=== PATIENT | female | born 1990 | race Caucasian/White ===

== ENCOUNTER → 2017-09-06 | Outpatient (CLI) | payer OTHER | END | disposition home or self-care (01) | LOC: C.PAPS 16:38 | PROVIDERS: ATTEND Obstetrics & Gynecology | DX: Z12.4 Encounter for screening for malignant neoplasm of cervix (principal) ==

== ENCOUNTER 2021-04-14 19:12 | Inpatient (IN) ==
[2021-04-14] MEDS: LACTATED RINGER'S 1,000 ML IV PRN ×2 (20:00→23:42)
[2021-04-14] MEDS ORDERED: OXYTOCIN 30 UNITS/500 ML BAG IV PRN (20:08)
[2021-04-14 20:58] LABS: Hematocrit (blood only) 30.6 % (37-47); Hemoglobin 10.4 g/dL (12.0-16.0); Mean Corpuscular Volume 91.1 fL (80-100); Mean Platelet Volume 11.4 fL (7.4-10.4); Platelet Count 187 K/uL (130-400); RDW Coefficient of Variation 12.8 % (11.5-14.5); RDW Standard Deviation 41.9 fL (36.4-46.3); Red Blood Count 3.36 M/uL (4.2-5.4)
--- NOTE | 2021-04-14 22:19 | History & Physical Report ---
Date of Service April 14, 2021 Assessment & Plan (1) Post-dates : Plan: IUP at 40 weeks presents for IOL cervical balloon was successfully placed but because of intolerance, it was removed with heart tracing returning to baseline. She is now odin regularly with mild contractions . will monitor for now- may need low dose pitocin for further cervical ripening if current contraction pattern slows and heart tracing remains reassuring. Admission and Anticipated Discharge Date Admission Date: April 14, 2021 History of Present Illness Primary Care Provider: Niall Middleton MD Patient is a 30 yo white female EDC 04/14/21 who presents for IOL with u nfavorable cervix. No regular contractions yet. Baby active. GBS(-) Allergies Allergy/AdvReac Type Severity Reaction Status Date / Time No Known Allergies Allergy Verified 04/14/21 19:27 Home Medications Medication Instructions Recorded Confirmed Type prenat.vits,carter,bsh-mjny-liyht 1 tab PO DAILY 08/27/20 04/14/21 History Patient History Medical History BCP ( control pills) initiation Common wart Junctional nevus Vesicoureteral reflux Surgical History Hx of oral surgery Family History Denies family history of Colorectal cancer Social History Smoking Status: Never smoker Hx Alcohol Use: No Hx Substance Use: No Preferred Language: Greek Communication Ability: Effective Medical Lab Technologist Required: No Beliefs That Will Affect Care: None marital status: marital status details: Alexandra (31) [phone] Current Living Situation: Spouse Current Living Situation Comment: lives with spouse, 1 dog, 1 cat, spouse to change litter. 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 Other Information That Helps Us Care for You: No Feels Safe at Home: Yes Safety Concerns: Feels Safe At This Time Sexual Activity: has been sexually active within the last 12 months Assistive Devices: None Review of Systems All systems reviewed & are unremarkable except as noted in HPI & below Physical Exam Constitutional: WD/WN, vitals as above Psychiatric: A+Ox3, euthymic affect Genitourinary: OB Exam Abdomen: + vertex, + estimated weight (6-7 pounds) and + irregular contractions Manual OB Exam: + cervical dilation (closed), + cervical effacement 50% and + station high speculum placed vaginally and cervix visualized. Initial attempts at placing the catheter intracervically were unsuccessful. A stylet was placed in the catheter taking care that the tip was securely inside the catheter. It was able to be placed into the cervix and 40cc water were instilled into the balloon. The catheter was then secured to her left thigh under gentle traction. shortly after placement of the balloon and securing it, heart tracing decreased to 80's bpm baseline. maternal position was changed multiple times and the heart rate remained in 80-90 bpm range. O2 was also begun. Ultimately the cervical balloon was emptied and the catheter removed from the cervix. At this point heart tones returned to baseline and returned to Category 1 tracing. Results & Data ([facility]) Vital Signs (Past 12 Hours) Vital Signs Temp Pulse Resp BP 04/14/21 19:24 98.6 F 77 18 123/58 L Coding Level of Care Code 94310 Office/Outpt Visit, Est Diagnoses Post-dates O48.0 CPT Codes Misx Procedure Codes - 41531 Placement of cervical dilator: 43190 Placement of cervical dilator ([id number])
[2021-04-15] MEDS ORDERED: OXYTOCIN 30 UNITS/500 ML BAG IV PRN (00:40)
[2021-04-15] MEDS: LACTATED RINGER'S 1,000 ML IV PRN (07:23)
--- NOTE | 2021-04-15 09:23 | History & Physical Report ---
Date of Service April 15, 2021 Assessment & Plan (1) intolerance to labor, delivered, current hospitalization: Plan: Brain is just postdates first baby and was scheduled for cervical Rios last night however after insertion of the Rios she had a prolonged D cells the cervical Rios had to be removed at that time. The heart rate did recovery and Pitocin was started over the night in the morning I discussed with the patient different options and at this stage her contractions are pretty minimal on the Pitocin we initially started to include to increase the Pitocin I assessed her cervix and it was long thick and closed and posterior the head posi tion was extremely high as well her pelvis is somewhat narrow I discussed options with the patient I think there are 2 options in this case one would would be active induction and Pitocin including retrying the cervical Rios however during her exam she had a prolonged D cells and then another D cell after the exam. At this stage I also discussed that I have some worries about the size of the baby relative to her pelvis and certainly an induction is not unwarranted however with the recurrence of her D cells at fairly minimal actions it is somewhat worrisome I offered the patient also to just proceed directly to section I discussed that she does not truly have intolerance to labor at this stage because we have not gotten her into even active labor. I reviewed the risks of a section in depth but I also reviewed the risks of inducing including the potential for a prolonged D-cell that would require an emergent I discussed and the Endo goal is always to promote vaginal delivery but in this case both the size of the baby relative to the size of the patient and her intolerance twice for laying on her back once was with the Rios and once was with the cervical exam intolerance with respect to the fetus. I given the patient and her time to discuss and ultimately want them to make the choice and then they have made the choice to proceed with and I agree this is a reasonable course we again reviewed the option of induction at this stage they declined section. The patient was counseled to the nature of the procedure including alternatives such as labor. Risks were discussed including bleeding infection injury to bowel bladder ureter vessels and even baby. Deep Vein thrombosis, pulmonary embolus discussed. Breakdown of incision reviewed. Deep vein thrombosis pulmonary embolus hernia and failure of the incision to heal were discussed Patient verbalized understanding of this and was given ample time to ask questi ons Admission and Anticipated Discharge Date Admission Date: April 14, 2021 History of Present Illness Primary Care Provider: Niall Middleton MD Allergies Allergy/AdvReac Type Severity Reaction Status Date / Time No Known Allergies Allergy Verified 04/14/21 19:27 Home Medications Medication Instructions Recorded Confirmed Type prenat.vits,carter,sad-glhj-mxmul 1 tab PO DAILY 08/27/20 04/14/21 History Patient History Medical History (Updated 04/15/21 @ 09:20 by Chelsea Mejia MD, FACOG) BCP ( control pills) initiation Common wart Junctional nevus Vesicoureteral reflux Surgical History Hx of oral surgery Family History Denies family history of Colorectal cancer Social History Smoking Status: Never smoker Hx Alcohol Use: No Hx Substance Use: No Preferred Language: Montserratian Communication Ability: Effective Rn Integrated Required: No Beliefs That Will Affect Care: None marital status: marital status details: Alexandra (31) [phone] Current Living Situation: Spouse Current Living Situation Comment: lives with spouse, 1 dog, 1 cat, spouse to change litter. 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 Other Information That Helps Us Care for You: No Feels Safe at Home: Yes Safety Concerns: Feels Safe At This Time Sexual Activity: has been sexually active within the last 12 months Assistive Devices: None Results & Data ([facility]) Vital Signs (Past 12 Hours) Vital Signs Temp Pulse Resp BP 04/15/21 08:15 73 120/61 04/15/21 07:14 98.2 F 78 20 111/70 04/15/21 06:16 81 16 101/68 04/15/21 05:14 98.6 F 52 L 16 100/53 L 04/15/21 04:14 54 L 16 99/54 L 04/15/21 03:14 68 95/53 L 04/15/21 02:14 57 L 16 104/59 L 04/15/21 01:14 98.1 F 76 16 103/48 L 04/14/21 22:21 98.6 F 70 18 112/55 L Coding Level of Care Code None Diagnoses intolerance to labor, delivered, current hospitalization O77.9
[2021-04-15] MEDS ORDERED: CITRIC ACID/SODIUM CITRATE 15 ML UDC PO SCH (09:45)
[2021-04-15] MEDS ORDERED: ceFAZolin 2000MG 2,000 MG/15 ML SYR IV SCH (09:45)
[2021-04-15] MEDS ORDERED: diphenhydrAMINE 50 MG/ML VIAL IV PRN (09:52)
[2021-04-15] MEDS ORDERED: MoRPHine SULFATE PF 1 MG/ML 10 ML AMP/VIAL INT SPINAL ONE (09:52)
[2021-04-15] MEDS ORDERED: LACTATED RINGER'S 500 ML IV PRN (09:52)
[2021-04-15] MEDS ORDERED: KETOROLAC 30 MG/ML VIAL IV PRN (09:52)
[2021-04-15] MEDS ORDERED: NALBUPHINE HCL INJ 10 MG/ML AMP IV PRN (09:52)
[2021-04-15] MEDS ORDERED: HYDROmorphone INJ 0.5 MG/0.5 ML SYR IV PRN (09:52)
[2021-04-15] MEDS ORDERED: ONDANSETRON INJ 2 MG/ML 2 ML VIAL IV PRN (09:52)
[2021-04-15] MEDS ORDERED: ePHEDrine sulfate 50 MG/ML AMP IV PRN (09:52)
[2021-04-15] MEDS ORDERED: NALOXONE HCL 0.4 MG/1 ML VIAL/CARP IV PRN (09:52)
[2021-04-15] MEDS ORDERED: NALOXONE HCL 1 MG in SODIUM CHLORIDE 0.9% 1000ML 1,000 ML IV PRN (09:52)
[2021-04-15] MEDS ORDERED: NALOXONE HCL 0.08 MG in SYRINGE 1.8 ML IV PRN (09:52)
--- NOTE | 2021-04-15 09:52 | Anesthesiology Consultation ---
Date of Service April 15, 2021 Assessment & Plan Chart Review Chart Review: Acceptable Risk for Surgery and Patient NOT seen in Pre Admission Testing Consults Requested none ASA ASA2 Proposed Anesthesia Anesthesia Type: MAC Spinal Risk / Benefits Reviewed With: PT / POA / Parent / Guardian, Accepts Plan and Informed Consent Obtained History Surgery Operation Date: 04/15/21 09:45 Proposed Procedures p Section in LD - J. Fred Mejia MD, FACOG Height/Weight Height: 5 ft 1 in Weight: 70.76 kg Allergies Allergy/AdvReac Type Severity Reaction Status Date / Time No Known Allergies Allergy Verified 04/14/21 19:27 Medications Home Medications Medication Instructions Recorded Confirmed Last Taken prenat.vits,carter,fvz-wynj-avebe 1 tab PO DAILY 08/27/20 04/14/21 04/14/21 08:00 Active Medications Generic Name Dose Route Start Last Admin Trade Name Freq PRN Reason Stop Dose Admin Lactated Ringer's 1,000 mls @ 125 mls/hr 04/14/21 20:08 04/15/21 09:00 Lr IV 04/16/21 20:07 999 mls/hr .Q8H PRN Infusion L&D Protocol Protocol Oxytocin 30 units in 500 mls @ 0 mls/hr 04/15/21 00:40 04/15/21 09:00 Pitocin IV 04/17/21 00:39 0 units/hr .Q0M PRN 0 mls/hr Labor Induction/Augmentation Titration Protocol 0 UNITS/HR NPO Date Last Intake of Fluids: 04/15/21 Time Last Intake of Fluids: 07:30 Date Last Intake of Solids: 04/14/21 Time Last Intake of Solids: 17:30 Past Medical History Medical History BCP ( control pills) initiation Common wart Junctional nevus Vesicoureteral reflux Exercise / Class Metabolic Activity II 4-5 Yardwork/Stairs/Walk up hill Past Family History Family History Denies family history of Colorectal cancer Past Surgical History Surgical History Hx of oral surgery Past Anesthesia History No Hx of Anesthesia Complications and No Family Hx of Anesthesia Complications History of PONV No Hx of PONV and No Hx of Motion Sickness Social History Smoking Status: Never smoker Hx Alcohol Use: No Hx Substance Use: No substance use type: does not use Review of Systems no chest pain or sob Physical Exam Vital Signs Last Vital Signs Temp 36.8 C 04/15/21 07:14 Pulse 74 04/15/21 09:49 Resp 20 04/15/21 07:14 BP 120/61 04/15/21 08:15 Pulse Ox 100 04/15/21 09:49 ENMT Mouth: no TMJ abnormality Thyromental Distance: > or= 3.5 Finger Breadths Mallampati Class: II Neck normal visual inspection Respiratory normal respiratory effort Auscultation: lungs clear to auscultation bilaterally Cardiovascular Rate/Rhythm: regular rate and regular rhythm Musculoskeletal Spine: normal cervical ROM Neurologic moves all extremities Psychiatric Orientation: alert and oriented x 3 Testing Laboratory Results 04/14/21 20:35
[2021-04-15] MEDS ORDERED: fentaNYL citrate 100 MCG/2 ML VIAL ONE (09:59)
[2021-04-15] MEDS ORDERED: MoRPHine SULFATE PF 1 MG/ML 10 ML AMP/VIAL ONE (09:59)
[2021-04-15] MEDS ORDERED: NO NARCOTICS OR SEDATIVES SCH (10:00)
[2021-04-15] MEDS ORDERED: SODIUM CHLORIDE 0.9% 1000ML 1,000 ML IV SCH (10:00)
[2021-04-15] MEDS ORDERED: DC INTRASPINAL MORPHINE SCH (10:00)
[2021-04-15] MEDS ORDERED: PHENYLEPHRINE 100MCG/ML 5ML SYR ONE (10:23)
[2021-04-15] MEDS ORDERED: ePHEDrine sulfate 50 MG/ML SYR ONE (10:23)
[2021-04-15] MEDS ORDERED: OXYTOCIN 10 UNITS/ML VIAL ONE ×2 (10:23→10:37)
[2021-04-15] MEDS ORDERED: ONDANSETRON INJ 2 MG/ML 2 ML VIAL ONE (10:26)
--- NOTE | 2021-04-15 11:10 | Operative Report ---
PG Post Operative Report Pre & Post Diagnosis Operation Date: 04/15/21 09:45 Pre-Op Diagnosis: Term , intolerance to labor Post-Op Diagnosis: Term , intolerance to labor. Primary section for living male child at 1035 I identified the patient and participated in the time-out.: Yes Procedure Operation Date: 04/15/21 09:45 <No data on this case meets the specified criteria> Surgeon Chelsea Mejia MD, FACOG Housekeeping Department Worker Dr. Sheikh Estimated Blood Loss 600 Findings Consistent with Post-Op Diagnosis Specimens Cord blood cord gases Description of Procedure Regional anesthetic was given by anesthesia patient had a Rios catheter inserted by nursing patient was prepped and draped in supine position with a leftward tilt preoperative antibiotics were given timeout performed Pickups with teeth were used to test the skin site and it was found adequate for incision scalpel used to make a Pfannenstiel incision cutting down through subcutaneous fat through the fascia fascia was then dissected laterally with the curved Concepcion's fascia was released superiorly and inferiorly from the rectus musc les with the curved Concepcion scissors, rectus muscle split peritoneal cavity entered in a superior location. Opening enlarged to allow exposure bladder retractor placed Metzenbaums used to dissect away the bladder flap low segment transverse incision made on the uterus with scalpel entry was done bluntly with the wood turning lathe operator's finger hysterotomy incision extended with the wood turning lathe operator's finger in the usual fashion. The baby's head was essentially floating in the uterus very high up out of the pelvis I ruptured membranes with a hemostat fluid was clear did not feel I could deliver the baby's head easily without a vacuum so this was attached initially pulled twice with pop offs of the vacuum and at this stage I extended the uterine incision slightly with bandage scissors. There was no significant extension at this stage is then able to deliver baby's head with pulling with the vacuum pulling firmly but not excessively and with pressure from the assistant producer helping baby's head was delivered was a loose nuchal cord passed over the head baby was then delivered by gentle traction no excessive force baby initially was not vigorous but became vigorous after initial resuscitation by the pediatric team male cord clamped and cut cord gases obtained cord blood obtained placenta removed manually within ensured all placenta removed with a moist lap sponge uterus exteriorized IV Pitocin had been started by anesthesia and uterine tone improved. The uterus was closed in 2 layers first layer and 0 Monocryl running locked second layer 0 Monocryl nonlocked after generous irrigation and suction of the cul-de-sac and bladder flap regions hemostasis was excellent uterus was placed back in the peritoneal cavity and hemostasis was excellent rectus muscles were inspected and found to be dry fascia closed with 0 Vicryl subcutaneous fat closed with 3-0 Vicryl prior to this subcutaneous fat was irrigated skin closed with 4-0 subcuticular Monocryl incision Steri-Stripped urine was clear at the end of the procedure. Uterus and both adnexa were normal I attest to the content of the Intraoperative Record and any orders documented therein. Any exceptions are noted below. OB Procedure Charges 19553
[2021-04-15 11:11] LABS: CO2 Cord Arterial Blood 96 mmHg (39.1-73.5); HCO3 Cord Arterial Blood 25 mmol/L (19.7-28.5); pH Cord Arterial Blood 7.03 (7.1-7.38)
[2021-04-15 11:16] LABS: Base Excess Cord Venous Blood -8.1 mEq/L (-7.7-1.9); Cord Venous Blood HCO3 25 mmol/L (18.4-26.8); Cord Venous Blood PCO2 90 mmHg (30.4-57.2); Cord Venous Blood pH 7.06 (7.20-7.44)
[2021-04-15 11:26] LABS: Cord Venous Blood PO2 < 10 mmHg (14.1-43.3); O2 Saturation Cord Venous Bld < 60.0 % (<68)
[2021-04-15 11:27] LABS: Oxygen Sat Cord Arterial Blood < 60.0 % (<60); PO2 Cord Arterial Blood < 10 mmHg (4.1-31.7)
[2021-04-15] MEDS ORDERED: BENZOCAINE 20% AER SPR 82.5 GM CAN EXT PRN (11:54)
[2021-04-15] MEDS ORDERED: DIPHTHERIA/TETANUS/PERTUSSIS 0.5 ML SYR/VIAL IM ONE (11:54)
[2021-04-15] MEDS ORDERED: SENNA 8.6 MG TAB PO PRN (11:54)
[2021-04-15] MEDS ORDERED: HYDROCORTISONE ACETATE 25 MG SUPP PR PRN (11:54)
[2021-04-15] MEDS ORDERED: MAGNESIUM HYDROXIDE SUSP 30 ML UDC PO PRN (11:54)
[2021-04-15] MEDS ORDERED: SUPERCREAM 0.870% 15 GM JAR EXT PRN (11:54)
--- NOTE | 2021-04-15 12:08 | Anesthesiology Progress Note ---
Date of Service April 15, 2021 Anesthesia Post Procedure Vital Signs Vital Signs: Temp Pulse Resp BP Pulse Ox 04/15/21 12:04 66 111/56 L 99 04/15/21 11:59 65 99 04/15/21 11:54 85 109/55 L 99 04/15/21 11:51 75 103/53 L 04/15/21 11:49 74 99 04/15/21 11:48 166/134 H 04/15/21 11:44 73 98 04/15/21 11:39 72 99 04/15/21 11:35 70 106/55 L 04/15/21 11:34 71 98 04/15/21 11:29 72 97 04/15/21 11:24 73 99/54 L 97 04/15/21 11:19 73 99 04/15/21 11:14 70 118/56 L 98 04/15/21 09:49 74 100 04/15/21 08:15 73 120/61 04/15/21 07:14 36.8 C 78 20 111/70 04/15/21 06:16 81 16 101/68 04/15/21 05:14 37.0 C 52 L 16 100/53 L 04/15/21 04:14 54 L 16 99/54 L 04/15/21 03:14 68 95/53 L 04/15/21 02:14 57 L 16 104/59 L 04/15/21 01:14 36.7 C 76 16 103/48 L 04/14/21 22:21 37.0 C 70 18 112/55 L 04/14/21 19:24 37.0 C 77 18 123/58 L Transfer of Care Handoff Completed per policy Notes Mental Status: alert / awake / arousable Patient Amnestic to Procedure: Yes Nausea / Vomiting: adequately controlled Pain: adequately controlled Airway Patency, RR, SpO2: stable & adequate BP & HR: stable & adequate Hydration State: stable & adequate Neuraxial Anesthesia: was administered and sensory block is resolving Anesthetic Complications: no major complications apparent and Pt Satisfied with anesthetic care
[2021-04-15] MEDS: OXYTOCIN 20 UNITS in LACTATED RINGER'S 1,000 ML IV SCH ×2 (13:49→21:41)
[2021-04-15] MEDS: SIMETHICONE 80 MG CHEW PO SCH ×3 (18:08→20:11)
[2021-04-15] MEDS: DOCUSATE SODIUM 100 MG CAP PO SCH (20:57)
[2021-04-16] MEDS ORDERED: PROMETHAZINE HCL 25 MG in SODIUM CHLORIDE 0.9% 50 ML IV PRN (03:53)
[2021-04-16] MEDS ORDERED: KETOROLAC 30 MG/ML VIAL IV PRN (03:53)
[2021-04-16] MEDS ORDERED: diphenhydrAMINE Capsule 25 MG CAP PO PRN (03:53)
[2021-04-16] MEDS ORDERED: ONDANSETRON INJ 2 MG/ML 2 ML VIAL IV PRN (03:53)
[2021-04-16] MEDS ORDERED: diphenhydrAMINE 50 MG/ML VIAL IV PRN (03:53)
--- NOTE | 2021-04-16 06:56 | Obstetrical Progress Note ---
Date of Service <Maria Guadalupe Hilario MD - Last Filed: 04/16/21 07:24> April 16, 2021 Assessment & Plan <Maria Guadalupe Hilario MD - Last Filed: 04/16/21 07:24> (1) delivery delivered: 30 yo now POD1 from LTCS for failure to progress at 40wk1d -Continue routine care -Vitals reviewed- HDS, afebrile -Blood type A+, GBS-, Rubella immune -Encourage ambulation, regular diet -Pain control with ibuprofen, oxycodone PRN -F/u in 6 weeks with OB <Chelsea Mejia MD, FACOG - Last Filed: 04/16/21 07:48> (1) delivery delivered: Subjective <Maria Guadalupe Hilario MD - Last Filed: 04/16/21 07:24> Ambulation: ambulating normally Voiding: no voiding problems (Rios taken out but has not urinated yet) Passing Gas:: Yes Diet Tolerance:: regular diet Lochia:: Small Feeding Type:: bottle feeding Current Pain Level(1-10): 0 Pt doing well overall, no acute complaints or distress. Mild soreness well controlled with medication. Has yet to pass BM Review of Systems Denies fever/chills. Denies dyspnea, cough. Denies chest pain. Denies breast pain or discharge. Denies dysuria. Denies headache. Denies back pain. Physical Exam <Maria Guadalupe Hilario MD - Last Filed: 04/16/21 07:24> General: Alert, oriented, no acute distress Cardiac: Regular rate and rhythm, normal S1, S2. No murmurs noted. Respiratory: Clear to auscultation b/l with good air flow entry, symmetric chest rise and fall. No wheezes or crackles. No increased work of breathing or accessory muscle use. Abdomen: Soft, nontender, nondistended. Fundus firm and palpable at 1 cm below umbilicus. Surgical incision clean, dry and intact without erythema, warmth or drainage. No guarding or rebound. Skin: No rashes or lesions Extremities: Warm, dry and well-perfused with capillary refill <2s b/l. No lower extremity edema, erythema or swelling. Negative Dasia's sign b/l. Results & Data ([facility]) <Maria Guadalupe Hilario MD - Last Filed: 04/16/21 07:24> Vital Signs (Past 12 Hours) Vital Signs Temp Pulse Resp BP Pulse Ox 04/16/21 04:45 36.9 C 68 18 108/62 93 04/16/21 04:00 18 95 04/16/21 03:00 18 92 04/16/21 02:00 18 93 04/16/21 01:00 18 94 04/16/21 00:10 36.7 C 66 18 104/60 94 04/16/21 00:00 18 93 04/15/21 23:00 18 94 04/15/21 22:00 18 86 L 04/15/21 21:00 16 97 04/15/21 20:30 37.2 C 68 18 106/52 L 96 04/15/21 19:59 16 97 04/15/21 19:00 16 97 <Chelsea Mejia MD, FACOG - Last Filed: 04/16/21 07:48> Co-Signing Physician Notes Resident Physician Supervision Note: I was present with Dr. Sheikh during the history and exam. I discussed the case with the resident and agree with the findings and plan as documented in the note. Any exceptions or clarifications are listed here: [None] Documented By: Chelsea Mejia MD, FACOG Resident Activity Tracking <Maria Guadalupe Hilario MD - Last Filed: 04/16/21 07:24> Resident Involvement: Resident Care Provided Care Provided: OB Delivery
[2021-04-16 07:30] LABS: Basophils # (auto) 0.01 K/uL (0-0.2); Basophils % (auto) 0.1 %; Eosinophils # (auto) 0.01 K/uL (0-0.5); Eosinophils % (auto) 0.1 %; Hematocrit (blood only) 24.6 % (37-47); Hemoglobin 8.3 g/dL (12.0-16.0); Immature Granulocytes # (auto) 0.01 K/uL (0.00-0.02); Immature Granulocytes % (auto) 0.1 %; Lymphocytes # (auto) 0.98 K/uL (1.2-3.4); Lymphocytes % (auto) 11.9 %; Mean Corpuscular Hemoglobin 31.2 pg (25-34); Mean Corpuscular Hgb Conc 33.7 g/dL (32-36); Mean Corpuscular Volume 92.5 fL (80-100); Mean Platelet Volume 10.4 fL (7.4-10.4); Monocytes # (auto) 0.65 K/uL (0.11-0.59); Monocytes % (auto) 7.9 %; Neutrophils # (auto) 6.61 K/uL (1.4-6.5); Neutrophils % (auto) 79.9 %; Platelet Count 137 K/uL (130-400); RDW Coefficient of Variation 13.1 % (11.5-14.5); RDW Standard Deviation 43.9 fL (36.4-46.3); Red Blood Count 2.66 M/uL (4.2-5.4); White Blood Count 8.27 K/uL (4.8-10.8)
[2021-04-16] MEDS: PRENATAL VITAMIN 1 TAB PO SCH (08:22)
[2021-04-16] MEDS: DOCUSATE SODIUM 100 MG CAP PO SCH ×2 (08:22→20:19)
[2021-04-16] MEDS: FERROUS SULFATE 325 MG TAB PO SCH (08:22)
[2021-04-16] MEDS: SIMETHICONE 80 MG CHEW PO SCH ×4 (08:22→23:43)
[2021-04-16] MEDS ORDERED: bisacodyL 5 MG TABEC PO SCH (20:00)
[2021-04-16] MEDS: oxyCODONE/ACETAMINOPHEN 5mg/325mg TAB PO PRN (23:58)
[2021-04-17] MEDS: DOCUSATE SODIUM 100 MG CAP PO SCH ×2 (07:39→20:25)
[2021-04-17] MEDS: FERROUS SULFATE 325 MG TAB PO SCH (07:39)
[2021-04-17] MEDS: SIMETHICONE 80 MG CHEW PO SCH ×4 (07:39→20:25)
--- NOTE | 2021-04-17 07:50 | Obstetrical Progress Note ---
Date of Service April 17, 2021 Assessment & Plan (1) delivery delivered: 30 yo now POD2 from [facility] Blood type A+, GBS-, Rubella immune Prefers to remain inpatient today into tomorrow AM for additional support. Recovery going very well, routine PP care. Subjective Ambulation: ambulating normally Voiding: no voiding problems Passing Gas:: Yes Diet Tolerance:: regular diet Lochia:: Small Feeding Type:: breast feeding Physical Exam Constitutional WD/WN, vitals as above Eyes PERRL, conjunctivae normal, anicteric sclerae Neck normal visual inspection Respiratory normal respiratory effort and able to speak in complete sentences; no respiratory distress and no labored breathing Cardiovascular Rate/Rhythm: regular rate and regular rhythm Extremities: no edema Chest (Breasts) Chest: normal inspection of chest Gastrointestinal (Abdomen) Inspection/Auscultation: abdomen normal to inspection Soft, postgravid. Incision c/d/i with a few steri-strips. Psychiatric A+Ox3, euthymic affect Genitourinary OB Exam Abdomen: + fundal height Fundus: + firm and + relation to umbilicus (fundus just below umbilicus); not tender Results & Data ([facility]) Vital Signs (Past 12 Hours) Vital Signs Temp Pulse Resp BP Pulse Ox 04/16/21 23:50 98.1 F 87 16 107/61 98 04/16/21 20:00 98.1 F 68 20 120/68 96
[2021-04-17 08:26] LABS: Hemoglobin 7.7 g/dL (12.0-16.0)
[2021-04-17] MEDS: oxyCODONE/ACETAMINOPHEN 5mg/325mg TAB PO PRN ×2 (08:51→23:56)
[2021-04-17] MEDS: IBUPROFEN 600 MG TAB PO PRN ×4 (08:52→23:56)
[2021-04-17] MEDS ORDERED: bisacodyL 10 MG SUPP PR PRN (11:07)
--- NOTE | 2021-04-17 21:38 | Anesthesiology Progress Note ---
Date of Service April 17, 2021 Anesthesia Post Procedure Vital Signs Vital Signs: Temp Pulse Resp BP Pulse Ox 04/17/21 20:00 36.7 C 80 16 121/81 98 04/17/21 15:45 36.7 C 72 16 122/77 97 04/17/21 07:35 36.7 C 78 16 102/61 98 04/16/21 23:50 36.7 C 87 16 107/61 98 Pain Intensity Lower Abdomen: Pain Intensity: 2 Transfer of Care Handoff Completed per policy Notes Mental Status: alert / awake / arousable Patient Amnestic to Procedure: Yes Nausea / Vomiting: adequately controlled Pain: adequately controlled Airway Patency, RR, SpO2: stable & adequate BP & HR: stable & adequate Hydration State: stable & adequate Neuraxial Anesthesia: was administered and sensory block resolved Anesthetic Complications: no major complications apparent and Pt Satisfied with anesthetic care
--- NOTE | 2021-04-18 05:59 | Hospitalist Progress Note ---
Date of Service April 18, 2021 Assessment & Plan Admission and Anticipated Discharge Date Admission Date: April 14, 2021 Results & Data Results & Data ([facility]) Vital Signs (Past 12 Hours) Vital Signs Temp Pulse Resp BP Pulse Ox 04/18/21 00:00 36.7 C 73 16 127/75 99 04/17/21 20:00 36.7 C 80 16 121/81 98
--- NOTE | 2021-04-18 06:35 | Obstetrical Progress Note ---
Date of Service April 18, 2021 Assessment & Plan (1) delivery delivered: Plan: 30 yo now POD1 from LTCS for failure to progress at 40wk1d -Continue routine care -Vitals reviewed- HDS, afebrile -Blood type A+, GBS-, Rubella immune -Encourage ambulation, regular diet -Pain control with ibuprofen, oxycodone PRN -F/u in 6 weeks with OB Admission and Anticipated Discharge Date Admission Date: April 14, 2021 Supervising Physician Co-Signing Physician Notes Resident Physician Supervision Note: I interviewed and examined the patient. Discussed with Dr. Garcia and agree with findings and plan as documented in the note. Any exceptions or clarifications are listed here: [ ] Documented By: Rivka Schmitz MD, FACOG Subjective Ambulation: ambulating normally Voiding: no voiding problems Passing Gas: Yes BM: yes Diet Tolerance:: regular diet Lochia:: Small Feeding Type:: bottle feeding Current Pain Level(1-10): 2 Pt doing well overall, no acute complaints or distress. Review of Systems Review of Systems: Denies fevers/chills. Denies dyspnea, cough. Denies chest pain. Denies breast pain or discharge. Denies dysuria. Mild intermittent headaches. Denies back pain. Physical Exam Physical Exam: General: Alert, oriented, no acute distress Cardiac: Regular rate and rhythm, normal S1, S2. No murmurs appreciated. Respiratory: Clear to auscultation b/l with good air flow entry, symmetric chest rise and fall. No wheezes or crackles. No increased work of breathing or accessory muscle use Abdomen: Soft, nontender, nondistended. Fundus firm and palpable at 2 cm below umbilicus. No guarding or rebound. Skin: No rashes or lesions, incision site healing well with no signs of infection Extremities: Warm, dry, well-perfused with capillary refill <2s b/l. No lower extremity edema, erythema or swelling. Negative Dasia's sign b/l. Results & Data ([facility]) Vital Signs (Past 12 Hours) Vital Signs Temp Pulse Resp BP Pulse Ox 04/18/21 00:00 36.7 C 73 16 127/75 99 04/17/21 20:00 36.7 C 80 16 121/81 98 Resident Activity Tracking Resident Involvement: Resident Care Provided Care Provided: OB Delivery
[2021-04-18] MEDS: DOCUSATE SODIUM 100 MG CAP PO SCH (10:27)
[2021-04-18] MEDS: SIMETHICONE 80 MG CHEW PO SCH (10:27)
[2021-04-18] MEDS: FERROUS SULFATE 325 MG TAB PO SCH (10:27)
[2021-04-18] MEDS: PRENATAL VITAMIN 1 TAB PO SCH (10:30)
--- NOTE | 2021-04-19 13:41 | Discharge Summary ---
Date of Service April 19, 2021 Admission HPI Per Admitting Provider Patient is a 30 yo white female EDC 04/14/21 who presents for IOL with unfavorable cervix. No regular contractions yet. Baby active. GBS(-) Admission Exam (Per Admitting) Cardiovascular RRR, no murmur, no edema Gastrointestinal (Abdomen) normal bowel sounds, soft, nontender, no hepatosplenomegaly Discharge Data Consultations 04/14/21 20:09 Consult Anesthesiology Stat Procedures Performed Operation Date: 04/15/21 09:45 Actual Procedures p Section in LD for living male child at 1035(Bilateral) - Chelsea Mejia MD, [facility] Hospital Course (1) delivery delivered: 30 yo now POD3 from LTCS for failure to progress at 40wk1d -Continue routine care -Vitals reviewed- HDS, afebrile -Blood type A+, GBS-, Rubella immune -Encourage ambulation, regular diet -Pain control with ibuprofen, oxycodone PRN -F/u in 6 weeks with OB Coding Level of Care Code None Diagnoses delivery delivered O82
== END 2021-04-18 11:30 | disposition home or self-care (01) | DRG 788 ==
LOC: OPB 19:12 → 4S1 19:14 → 4S2 04-15 14:04

== ENCOUNTER 2024-08-29 05:29 | Inpatient (IN) ==
--- NOTE | 2024-08-20 13:19 | Anesthesiology Consultation ---
Date of Service August 20, 2024 Assessment & Plan (1) Encounter for pre-operative examination: Chart Review Chart Review: freelance data entry initiated -Infectious Disease screening: Per PAT nursing assessment on 08/20/24. No known infectious disease contacts in past 10 days or current infectious disease symptoms. No recent travel outside the country. 04/15/24= Done under SAB at L3-4 with 1 attempt (done secondary to intolerance to labor) History Surgery Operation Date: 08/29/24 07:30 Proposed Procedures p Section in LD - Pallavi Maki MD, FACOG Height/Weight Height: 5 ft 1 in Weight: 75.296 kg Allergies Allergy/AdvReac Type Severity Reaction Status Date / Time No Known Allergies Allergy Verified 08/20/24 12:48 Medications Home Medications Medication Instructions Recorded Confirmed Last Taken prenat.vits,carter,[id number] 1 tab PO DAILY 08/16/22 08/20/24 Unknown ferrous sulfate 47.5 mg PO DAILY 08/20/24 08/20/24 Unknown Past Medical History Medical History History of miscarriage Junctional nevus Past Family History Family History Grandfather (Paternal) Dyslipidemia Heart disease w/ stents Grandfather No problems noted. Father Dyslipidemia Heart disease w/ stents Other No family history of adverse response to anesthesia Denies family history of Ovarian cancer Prostate cancer Myocardial infarction Breast cancer Colorectal cancer Past Surgical History Surgical History History of kidney surgery as a 2 year old, cleared by urology as child. no issues. (ureter reflux) Hx of section x 1 [place] teeth removed Social History Smoking Status: Never smoker Do You Dip or Chew Tobacco: No Hx Alcohol Use: No Hx Substance Use: No substance use type: does not use Lab Results Anesthesia Preop Results Results Anesthesia Widget: Hgb 12.4 g/dl (12.0-16.0) 08/05/24 Hct 36.8 % (37.0-47.0) L 08/05/24
--- NOTE | 2024-08-28 08:51 | History & Physical Report ---
Date of Service August 28, 2024 Assessment & Plan (1) 39 weeks gestation of : (2) Previous delivery affecting , antepartum: Plan admit for repeat c/s on 08/29. consent reviewed and signed. labs morning of surgery. reviewed risks, alt. reviewed ERAS protocol. History of Present Illness Chief Complaint: planned c/s Primary Care Provider: Niall Middleton MD 33yo at 39 wks ega presents to LD on day of admission for planned repeat c/section. No rom, no vb. No ctx. PNC c/b 1. prior c/s, desires repeat c/s 2. mild poly, resolved. PNL rhpos, ri, gbs neg OBH: c/s x 1, sab GYNH: nl paps no stds Allergies Allergy/AdvReac Type Severity Reaction Status Date / Time No Known Allergies Allergy Verified 08/28/24 08:59 Home Medications Medication Instructions Recorded Confirmed Type prenat.vits,carter,[id number] 1 tab PO DAILY 08/16/22 08/28/24 History ferrous sulfate 47.5 mg PO DAILY 08/20/24 08/28/24 History Patient History Medical History History of miscarriage Junctional nevus Surgical History History of kidney surgery as a 2 year old, cleared by urology as child. no issues. (ureter reflux) Hx of section x 1 [place] teeth removed Family History Grandfather (Paternal) Dyslipidemia Heart disease w/ stents Grandfather No problems noted. Father Dyslipidemia Heart disease w/ stents Other No family history of adverse response to anesthesia Denies family history of Ovarian cancer Prostate cancer Myocardial infarction Breast cancer Colorectal cancer Social History Smoking Status: Never smoker Second Hand Exposure: No; Do You Dip or Chew Tobacco: No; Hx Alcohol Use: No Hx Substance Use: No Preferred Language: Divehi Communication Ability: Effective Contract Modeler Required: No Beliefs That Will Affect Care: None marital status: marital status details: Alexandra (34) [phone] Current Living Situation: Family Current Living Situation Comment: lives with spouse, 1 dog, 1 cat, spouse to change litter. current occupational status: employed current occupation: [employer] @ [employer] Feels Safe at Home: Yes Sexual Activity: has been sexually active within the last 12 months Assistive Devices: Contacts and Glasses Review of Systems as per Subjective / HPI Physical Exam Constitutional: WD/WN, vitals as above Respiratory: normal respiratory effort, lungs clear to auscultation Cardiovascular: Rate/Rhythm: regular rate and regular rhythm Gastrointestinal (Abdomen): soft gravid nt Musculoskeletal: no edema nontender calves Neurologic: grossly normal Psychiatric: A+Ox3, euthymic affect Coding Level of Care Code None Diagnoses 39 weeks gestation of Z3A.39 Previous delivery affecting , antepartum O34.219
[2024-08-29] MEDS ORDERED: LACTATED RINGER'S 1,000 ML IV PRN (05:32)
[2024-08-29] MEDS ORDERED: LIDOCAINE 1% LOCAL 20 ML VIAL INFIL PRN (05:32)
[2024-08-29] MEDS ORDERED: OXYTOCIN 30 UNITS/NSS 30 UNITS/500 ML BAG IV PRN (05:32)
[2024-08-29 06:07] LABS: Hematocrit (blood only) 34.5 % (37.0-47.0); Hemoglobin 11.8 g/dl (12.0-16.0); Mean Corpuscular Hemoglobin 30.6 pg (25.0-34.0); Mean Corpuscular Hgb Conc 34.2 g/dL (32.0-36.0); Mean Corpuscular Volume 89.6 fL (80.0-100.0); Mean Platelet Volume 11.8 fL (9.4-12.4); Platelet Count 174 K/uL (130-400); RDW Coefficient of Variation 12.8 % (11.5-14.5); Red Blood Count 3.85 M/uL (4.20-5.40); White Blood Count 7.18 K/ul (4.8-10.8)
[2024-08-29] MEDS: LACTATED RINGER'S 1,000 ML IV SCH (06:55)
[2024-08-29] MEDS: ACETAMINOPHEN 500 MG TAB PO SCH (06:56)
[2024-08-29] MEDS ORDERED: HYDROmorphone INJ 0.5 MG/0.5 ML SYR IV PRN (07:11)
[2024-08-29] MEDS ORDERED: MoRPHine SULFATE 2 MG/ML CARP IV PRN (07:11)
[2024-08-29] MEDS ORDERED: NALOXONE HCL 0.08 MG in SYRINGE 1.8 ML IV PRN (07:11)
[2024-08-29] MEDS ORDERED: PROMETHAZINE 6.25 MG/50.25 ML BAG IV PRN (07:11)
[2024-08-29] MEDS ORDERED: oxyCODONE HCL IR 5 MG TAB (IMMEDIATE RELEASE) PO PRN (07:11)
[2024-08-29] MEDS ORDERED: MEPERIDINE HCL 25 MG/ML CARP/VIAL IV PRN (07:11)
[2024-08-29] MEDS ORDERED: ePHEDrine sulfate 50 MG/ML AMP IV PRN (07:11)
[2024-08-29] MEDS ORDERED: ONDANSETRON INJ 2 MG/ML 2 ML VIAL IV PRN (07:11)
[2024-08-29] MEDS ORDERED: diphenhydrAMINE 50 MG/ML VIAL IV PRN (07:11)
[2024-08-29] MEDS ORDERED: NALOXONE HCL 1 MG in SODIUM CHLORIDE 0.9% 1,000 ML IV PRN (07:11)
[2024-08-29] MEDS ORDERED: NALBUPHINE HCL INJ 10 MG/ML AMP IV PRN (07:11)
[2024-08-29] MEDS ORDERED: NALOXONE HCL 0.4 MG/1 ML VIAL/CARP IV PRN (07:11)
[2024-08-29] MEDS ORDERED: DC INTRASPINAL MORPHINE SCH (07:15)
[2024-08-29] MEDS ORDERED: NO NARCOTICS OR SEDATIVES SCH (07:15)
[2024-08-29] MEDS ORDERED: MoRPHine SULFATE PF 1 MG/ML 10 ML AMP/VIAL ONE (07:20)
[2024-08-29] MEDS ORDERED: OXYTOCIN 10 UNITS/ML VIAL ONE (07:20)
[2024-08-29] MEDS ORDERED: PHENYLEPHRINE HCL 10 MG/ML VIAL ONE (07:20)
--- NOTE | 2024-08-29 07:20 | History & Physical Bridge Note ---
Date of Service August 29, 2024 History & Physical Bridge Note I have examined the patient, reviewed the History & Physical and in the interval since the performance of the History & Physical I have noted the following changes of clinical significance: no changes noted
[2024-08-29] MEDS ORDERED: PHENYLEPHRINE HCL 25 MG/250 ML NSS IV ONE (07:21)
[2024-08-29] MEDS ORDERED: ONDANSETRON INJ 2 MG/ML 2 ML VIAL ONE (07:24)
[2024-08-29] MEDS: ceFAZolin 2,000 MG in SYRINGE 0 ML IV SCH (07:35)
[2024-08-29] MEDS: CITRIC ACID/SODIUM CITRATE 15 ML UDC PO SCH (08:10)
[2024-08-29] MEDS: MoRPHine SULFATE PF 1 MG/ML 10 ML AMP/VIAL INT SPINAL ONE (08:11)
--- NOTE | 2024-08-29 08:32 | Operative Report ---
Post Operative Report Pre & Post Diagnosis Operation Date: 08/29/24 07:30 Pre-Op Diagnosis: 1. 39 weeks gestation 2. Prior c/section, desires repeat section Post-Op Diagnosis: Same I identified the patient and participated in the time-out.: Yes Procedure Operation Date: 08/29/24 07:30 Actual Procedures p Repeat Low Transverse Section with the of a live male child at 0801. - Pallavi Maki MD, FACOG Surgeon Pallavi Maki MD, FACOG Sheep Sticker Sergey Quantitative Blood Loss (QBL) 381 Findings Consistent with Post-Op Diagnosis (viable male apgars pending. normal uterus tubes and ovaries bilaterally. ) Fluids 1000cc Specimens cord blood Drains hernández Anesthesia Type Spinal Complications none Disposition Accompanied Patient To Recovery: No Disposition: L&D Indications 33yo at 39wks ega for planned repeat c/s for history of prior c/s. Description of Procedure The patient was taken to the operating room and identified. After adequate anesthesia was obtained, she was placed in the supine position with a leftward tilt on the operating table and prepped and draped in the usual sterile fashion. A hernández catheter had already been placed. The knife was used to create a Pfannensteil skin incision that was carried down to the underlying layer of fascia. The fascia was nicked in the midline and this opening was extended laterally using Concepcion scissors. Phi clamps were placed on the superior and inferior aspect of the fascial incision tenting it upward and the underlying rectus muscles were dissected off the overlying fascia both sharply and bluntly using Concepcion scissors. The rectus muscles were bluntly in the midline. The peritoneal cavity was bluntly entered into. This opening was stretched. The bladder blade was placed. The vesicouterine peritoneum was elevated and opened up into and the bladder flap was created digitally and bladder blade was replaced. The knife was used to create a hysterotomy and this opening was stretched. The operators hand was placed through the hysterotomy and the bladder blade was removed. The head was elevated and flexed and with fundal pressure the head was delivered. The shoulders and body were rapidly delivered. The cord was clamped and cut and the 's mouth and nares were bulb suction. The infant was handed off to the awaiting pediatricians. Cord blood was obtained. The placenta was manually expressed. The uterus was exteriorized and cleared of all clots and debris. Dilute IV Pitocin was begun. The uterine tone was improving. The hysterotomy was closed in a running interlocking fashion using 0 Vicryl followed by a second imbricating layer of 0 Vicryl. The hysterotomy was not hemostatic. Additional figure of eight suture of 2-0 vicryl at left of hysterotomy was placed and now hemostatic. The pelvis was suctioned. The uterus was returned to the abdomen. The gutters were cleared of all clots and debris. The hysterotomy was reinspected and noted to be hemostatic. The fascia was then closed in running fashion using 0 Vicryl. The subcutaneous fat was copiously irrigated and reapproximated using 2-0 chromic. The skin was closed in a subcuticular fashion using 4-0 monocryl. At this point the procedure was terminated. The patient was transferred to the recovery room in stable condition. All sponge, lap and needle counts are correct x2. I attest to the content of the Intraoperative Record and any orders documented therein. Any exceptions are noted below. OB Procedure Charges 78295
--- NOTE | 2024-08-29 08:54 | Anesthesiology Progress Note ---
Date of Service August 29, 2024 Anesthesia Post Procedure Vital Signs Vital Signs: Temp Pulse Resp BP Pulse Ox 08/29/24 08:49 95 H 99 08/29/24 08:47 85 109/72 08/29/24 08:44 96 08/29/24 08:44 94 H 08/29/24 08:44 112 H 94 08/29/24 08:39 98 08/29/24 08:39 90 08/29/24 08:39 92 H 136/55 L 08/29/24 08:34 97 H 98 08/29/24 05:49 94 H 119/72 08/29/24 05:42 36.8 C 18 Transfer of Care Handoff Completed per policy Notes Mental Status: alert / awake / arousable Nausea / Vomiting: adequately controlled Pain: adequately controlled Airway Patency, RR, SpO2: stable & adequate BP & HR: stable & adequate Hydration State: stable & adequate Neuraxial Anesthesia: was administered and sensory block is resolving Anesthetic Complications: no major complications apparent and Pt Satisfied with anesthetic care
[2024-08-29] MEDS ORDERED: BENZOCAINE 20% SPRY 85 APPLN/85 GM CAN EXT PRN (09:37)
[2024-08-29] MEDS ORDERED: MAGNESIUM HYDROXIDE SUSP 30 ML UDC PO PRN (09:37)
[2024-08-29] MEDS ORDERED: SENNA 8.6 MG TAB PO PRN (09:37)
[2024-08-29] MEDS ORDERED: CALCIUM CARBONATE 500 MG CHEWABLE TAB PO PRN (09:37)
[2024-08-29] MEDS ORDERED: LACTATED RINGER'S 1,000 ML IV SCH (09:37)
[2024-08-29] MEDS ORDERED: HYDROCORTISONE ACETATE 25 MG SUPP PR PRN (09:37)
[2024-08-29] MEDS: KETOROLAC 30 MG/ML VIAL IV SCH (10:05)
[2024-08-29] MEDS: DIPHTHER/TETAN/PERTUS Vaccine (Tdap, Adol/Adult) 0.5mL IM ONE (10:44)
[2024-08-29] MEDS: SIMETHICONE 80 MG CHEW PO SCH (12:35)
[2024-08-29] MEDS: ACETAMINOPHEN 325 MG TAB PO SCH (15:06)
[2024-08-29] MEDS: DOCUSATE SODIUM 100 MG CAP PO SCH (21:01)
[2024-08-30] MEDS ORDERED: diphenhydrAMINE 50 MG/ML VIAL IV PRN (01:11)
[2024-08-30] MEDS ORDERED: HYDROmorphone INJ 0.5 MG/0.5 ML SYR IV PRN (01:11)
[2024-08-30] MEDS ORDERED: diphenhydrAMINE Capsule 25 MG CAP PO PRN (01:11)
[2024-08-30] MEDS ORDERED: ONDANSETRON INJ 2 MG/ML 2 ML VIAL IV PRN (01:11)
[2024-08-30] MEDS ORDERED: PROMETHAZINE 12.5 MG/50.5 ML BAG IV PRN (01:11)
[2024-08-30 03:33] VITALS: RESP 16
--- NOTE | 2024-08-30 06:32 | Obstetrical Progress Note ---
Date of Service <Sindi Valentin MD - Last Filed: 08/30/24 07:56> August 30, 2024 Assessment & Plan <Sindi Valentin MD - Last Filed: 08/30/24 07:56> (1) care and examination: Plan POD1 s/p rLTCS at 39+ wga: Stable. Rh+, gbs neg, ri, vitals & H/H noted Continue routine care, OOB and ambulation, diet as tolerated Probable DC tomorrow <Jo Ann Mendez DO - Last Filed: 08/30/24 07:58> (1) care and examination: Subjective <Sindi Valentin MD - Last Filed: 08/30/24 07:56> Brain is a 33yo who is POD#1 following repeat delivery at 39 3/7 weeks. Abd pain/cramping - 06/23, well managed on analgesics Voiding w/o issue Tolerating meals Ambulating normally +passing gas, no BM yet Lochia is diminishing Planning to bottle feed Constitutional: no fever, no chills or no sweats Respiratory: no dyspnea Cardiovascular: no chest pain, no palpitations or no calf pain Breast: no breast pain Gastrointestinal: no nausea or no vomiting Genitourinary (female): no dysuria Neurologic: no headache(s) no changes in vision, no headaches Physical Exam <Sindi Valentin MD - Last Filed: 08/30/24 07:56> General: Alert, oriented. No acute distress. Cardiac: Regular rate and rhythm, no murmurs, rubs, or gallops. Respiratory: Clear to auscultation bilaterally. No increased work of breathing. Symmetrical chest rise. No respiratory distress. Abdomen: Soft, nontender, nondistended. Bowel sounds present. Uterus: Uterine fundus firm, nontender, palpable at the level of the umbilicus. Surgical dressing c/d/i Lower extremities: No lower extremity edema or swelling. No deep calf pain. Results & Data <Sindi Valentin MD - Last Filed: 08/30/24 07:56> Vital Signs (Past 12 Hours) Vital Signs Temp Pulse Resp BP Pulse Ox O2 Del Method 08/30/24 03:32 36.4 C L 72 16 111/66 98 Room Air 08/30/24 01:30 18 98 08/30/24 00:00 18 98 08/29/24 22:53 36.6 C 78 16 117/75 96 Room Air 08/29/24 22:30 18 99 08/29/24 20:00 18 99 08/29/24 20:00 37.1 C 83 18 118/70 98 Room Air 08/29/24 18:48 16 98 Supervising Physician <Jo Ann Mendez DO - Last Filed: 08/30/24 07:58> Co-Signing Physician Notes Resident Physician Supervision Note: I was present with Dr. Valentin during the history and exam. I discussed the case with the resident and agree with the findings and plan as documented in the note. Any exceptions or clarifications are listed here: POD#1 doing well. Incision CDI. Abdomen soft. Routine postop care. Documented By: Jo Ann Mendez DO Resident Activity Tracking <Sindi Valentin MD - Last Filed: 08/30/24 07:56> Resident Involvement: Resident Care Provided Care Provided: Adult Hospital Medicine and OB Delivery
[2024-08-30 07:01] LABS: Basophils # (auto) 0.04 K/uL (0.00-0.20); Basophils % (auto) 0.5 %; Eosinophils # (auto) 0.06 K/uL (0.00-0.50); Eosinophils % (auto) 0.7 %; Hematocrit (blood only) 32.4 % (37.0-47.0); Immature Granulocytes # (auto) 0.02 K/uL (0.01-0.20); Immature Granulocytes % (auto) 0.2 %; Lymphocytes # (auto) 1.15 K/uL (1.20-3.40); Lymphocytes % (auto) 13.8 %; Mean Corpuscular Hemoglobin 31.1 pg (25.0-34.0); Mean Corpuscular Volume 91.5 fL (80.0-100.0); Mean Platelet Volume 11.1 fL (9.4-12.4); Monocytes # (auto) 0.57 K/uL (0.11-0.59); Monocytes % (auto) 6.8 %; Neutrophils # (auto) 6.51 K/uL (1.40-6.50); Platelet Count 153 K/uL (130-400); RDW Standard Deviation 43.1 fL (36.4-46.3); Red Blood Count 3.54 M/uL (4.20-5.40); White Blood Count 8.35 K/ul (4.8-10.8)
[2024-08-30] MEDS ORDERED: KETOROLAC 30 MG/ML VIAL IV PRN (08:24)
[2024-08-30] MEDS: FERROUS SULFATE 325 MG TAB PO SCH (08:34)
[2024-08-30] MEDS: IBUPROFEN 600 MG TAB PO SCH (08:35)
[2024-08-30] MEDS: PRENATAL VITAMIN 1 TAB PO SCH (08:36)
[2024-08-30] MEDS: oxyCODONE HCL IR 5 MG TAB (IMMEDIATE RELEASE) PO PRN (11:51)
[2024-08-30 11:59] VITALS: TEMP 98.2
[2024-08-31] MEDS: bisacodyL 5 MG TABEC PO SCH (06:39)
[2024-08-31 07:15] LABS: Hematocrit (blood only) 33.7 % (37.0-47.0); Hemoglobin 11.3 g/dl (12.0-16.0)
[2024-08-31] MEDS ORDERED: bisacodyL 10 MG SUPP PR PRN (08:24)
--- NOTE | 2024-08-31 08:45 | Obstetrical Progress Note ---
Date of Service August 31, 2024 Assessment & Plan (1) care and examination: stable, doing well. desires dc home. instructions reviewed. checked on papdmp and no issues identified. plan 6wk pp check. bottle, rh pos, ri. Day #:: 2 Subjective Ambulation: ambulating normally Voiding: no voiding problems Passing Gas:: Yes Diet Tolerance:: regular diet Lochia:: Small Feeding Type:: bottle feeding pain well controlled. using occasional oxycodone. Constitutional: + as per Subjective / HPI Physical Exam Constitutional WD/WN, vitals as above Respiratory normal respiratory effort, lungs clear to auscultation Cardiovascular Rate/Rhythm: regular rate and regular rhythm Gastrointestinal (Abdomen) Inspection/Auscultation: abdomen normal to inspection and + abdominal surgical incision (c/d/i) Percussion/Palpation: abdomen soft Fundus firm 2cm down Musculoskeletal nt calves no edema Neurologic grossly normal Psychiatric A+Ox3, euthymic affect Results & Data Vital Signs (Past 12 Hours) Vital Signs Temp Pulse Resp BP Pulse Ox O2 Del Method 08/30/24 22:31 98.2 F 77 16 118/73 95 Room Air
[2024-08-31] MEDS: IBUPROFEN 600 MG TAB PO PRN (09:30)
[2024-08-31 09:55] VITALS: BP 126/76; PULSE 75; O2SAT 98
[2024-08-31] MEDS ORDERED: ACETAMINOPHEN 325 MG TAB PO PRN (14:24)
== END 2024-08-31 11:45 | disposition home or self-care (01) | DRG 788 ==
LOC: 4S1 → EDSTATUS 07:30 → 4E2 11:19